=== PATIENT | male | born 1990 | race Two or more races ===

== ENCOUNTER 2019-01-25 01:03 | Emergency (ER) | payer BC, SELFPAY ==
[2019-01-25 01:05] VITALS: BP 139/94; PULSE 86; RESP 18; TEMP 36.4; O2SAT 99; BMI 26.9
--- NOTE | 2019-01-25 01:36 | ED.DCSUM_ITS ---
- ER Visit Summary Date of Service: 01/25/19 Chief Complaint: Dizziness History of Present Illness: The patient is a 28 M who presents with dizziness. It began suddenly about 1 hour ago. He describes it as a sensation of the room spinning and feeling off balance. He has recently been having some problems with ringing in his left ear and saw his primary care physician was started on antibiotics. He complains of increased ear pressure in the left ear. This began after a flight to [place]. No nausea or vomiting. He otherwise denies recent illness. No congestion or rhinorrhea. Physical Examination: Afebrile vitals are stable Moist mucous membranes Heart regular rate and rhythm Lungs clear Abdomen soft Alert and oriented with no focal or lateralizing neurological deficits normal strength normal sensation Tympanic membranes normal Test Results: Not indicated Emergency Department Course and Treatment: Patient has peripheral vertigo. He was given meclizine here as well as a prescription for the same. He was advised this is likely self-limiting but was given a referral to ENT should his symptoms not improve. Treatment Plan: [] Disposition: Discharge Impression: Peripheral vertigo This note was generated with [employer] dictation software. It may contain incorrect words, spelling, and punctuation that were not noted in review of the chart prior to signing ED Disposition - Plan for ED Patient: Referrals: Rufino Agee MD [Primary Care Provider] -
--- NOTE | 2019-01-25 01:36 | ED.DEP ---
ED Disposition - Plan for ED Patient: Instructions: ED Vertigo Unspecified Prescriptions: Meclizine HCl [Antivert] 25 mg PO 4X/DAY PRN PRN #20 tab PRN Reason: Dizziness Referrals: Rufino Agee MD [Primary Care Provider] - Tomy Flores MD [STAFF PHYSICIAN] -
[2019-01-25 01:40] VITALS: RESP 16
[2019-01-25] MEDS: Meclizine HCl 25 MG Tablet PO (01:41)
== END 2019-01-25 01:43 | disposition home or self-care (01) ==
LOC: ED 01:38
PROVIDERS: Emergency Provider Emergency Medicine; Family Provider Family Medicine; PCP Family Medicine
DX: H81.392 Other peripheral vertigo, left ear (principal)
CPT/HCPCS: 99283

== ENCOUNTER → 2019-10-08 15:34 | Outpatient (CLI) | payer BC, SELFPAY ==
[2019-10-08 17:49] LABS: Anion Gap 5 (5-15); BUN 13 mg/dL (7-18); BUN/Creat Ratio 11.7 RATIO (10-20); Calcium,Total 8.5 mg/dL (8.5-10.1); Chloride 106 mmol/L (98-107); Cholesterol 148 mg/dL (200); Creatinine, Serum 1.11 mg/dL (0.70-1.30); EST Glomerular Filtration Rate 83 mL/min (>60); Est Glom Filt Rate - Afr Amer 100 mL/min (>60); Glucose 104 mg/dL (74-106); High Density Lipoprotein 26 mg/dL; Potassium 4.3 mmol/L (3.5-5.1); Sodium Level 141 mmol/L (136-145); Triglycerides 222 mg/dL; Very Low Density Lipoprotein 44 mg/dL (5-40)
== END ==
PROVIDERS: Family Provider Family Medicine; PCP Family Medicine; Referring Provider Family Medicine; Visit Provider Family Medicine
DX: Z00.00 Encounter for general adult medical examination without abnormal findings (principal)
CPT/HCPCS: 36415; 80048; 80061

== ENCOUNTER → 2020-10-13 07:59 | Outpatient (CLI) | payer BC, SELFPAY ==
[2020-10-13 10:55] LABS: Anion Gap 2 (5-15); BUN 12 mg/dL (7-18); BUN/Creat Ratio 10.4 RATIO (10-20); Chloride 105 mmol/L (98-107); Cholesterol 205 mg/dL (200); Creatinine, Serum 1.15 mg/dL (0.70-1.30); EST Glomerular Filtration Rate 79 mL/min (>60); Est Glom Filt Rate - Afr Amer 95 mL/min (>60); Glucose 93 mg/dL (74-106); High Density Lipoprotein 36 mg/dL; Potassium 4.1 mmol/L (3.5-5.1); Sodium Level 139 mmol/L (136-145); Triglycerides 195 mg/dL; Very Low Density Lipoprotein 39 mg/dL (5-40)
== END ==
PROVIDERS: PCP Family Medicine; Referring Provider Family Medicine; Visit Provider Family Medicine
DX: Z00.00 Encounter for general adult medical examination without abnormal findings (principal)
CPT/HCPCS: 36415; 80048; 80061; 82306

== ENCOUNTER → 2021-01-24 12:12 | Outpatient (CLI) | payer BC, SELFPAY ==
[2021-01-24 15:26] LABS: Absolute Neutrophil Count 2.6 X10^3/uL (2.0-7.7); Basophil# 0.03 X10^3/uL; Basophil% 0.6 % (0-1); Eosinophil# 0.04 X10^3/uL; Eosinophils% 0.8 % (0-5); Hemoglobin 14.3 g/dL (13.0-16.5); Lymphocyte % 35.6 % (19-41); Mean Corp Hgb Conc 29.8 g/dL (32-36); Mean Platelet Vol. 9.9 fl (6.2-12.0); Monocyte# 0.35 X10^3/uL; Monocyte% 7.3 % (0-10); NRBC Flagged by Analyzer 0 % (0-5); Neutrophil # 2.64 X10^3/uL (2.7-7.7); Neutrophil % 55.3 % (47-70); Platelet Count 225 K/mm3 (150-450); RBC Distribution Width SD 38.6 fl (35.1-43.9); Red Blood Count 6.23 M/mm3 (4.6-6.2); White Blood Count 4.8 K/mm3 (4.4-11.0)
[2021-01-24 15:47] LABS: Anion Gap 7 (5-15); BUN 12 mg/dL (7-18); BUN/Creat Ratio 11.1 RATIO (10-20); Calcium,Total 8.8 mg/dL (8.5-10.1); Chloride 105 mmol/L (98-107); Creatinine, Serum 1.08 mg/dL (0.70-1.30); EST Glomerular Filtration Rate 85 mL/min (>60); Est Glom Filt Rate - Afr Amer 102 mL/min (>60); Glucose 98 mg/dL (74-106); Potassium 4.1 mmol/L (3.5-5.1); Sodium Level 138 mmol/L (136-145); Thyroid Stim Hormone (TSH) 3.43 uIU/mL (0.358-3.74)
== END ==
PROVIDERS: PCP Family Medicine; Referring Provider Family Medicine; Visit Provider Family Medicine
DX: R00.2 Palpitations (principal)
CPT/HCPCS: 36415; 80048; 84443; 85025